=== PATIENT | female | born 1940 | race Caucasian/White ===

== ENCOUNTER 2017-12-09 08:54 | Day surgery (SDC) | payer OTHER | END 2017-12-09 14:15 | disposition home or self-care (01) | LOC: AMB-ENDOS 08:54 → CIR.AMB 12:00 → AMB-ENDOS 14:15 | DX: D12.0 Benign neoplasm of cecum (principal) ==

== ENCOUNTER 2023-05-19 10:45 | Inpatient (IN) | payer OTHER ==
[2023-05-29] MEDS ORDERED: INSULIN REGULAR, HUMAN 1,000 UNIT/10 ML UNITS SUBCUTANEO ONE (11:30)
[2023-05-29] MEDS ORDERED: METRONIDAZOLE/SODIUM CHLORIDE 500 MG/100 ML PIGGYBACK IV ONE ×3 (11:42→18:07)
[2023-05-29] MEDS ORDERED: CEFTRIAXONE SODIUM 2,000 MG VIAL ONE (11:42)
[2023-05-29] MEDS ORDERED: CEFTRIAXONE SODIUM 2,000 MG VIAL IV ONE (11:45)
[2023-05-29] MEDS ORDERED: 0.9 % SODIUM CHLORIDE 1,000 ML IV SCH (16:00)
[2023-05-29] MEDS ORDERED: DEXTROSE 50 % IN WATER 0.5 G/ML DISP.SYRIN IV PRN ×2 (16:00→20:30)
[2023-05-29] MEDS ORDERED: INSULIN LISPRO 1,000 UNIT/10 ML UNITS SUBCUTANEO PRN ×2 (16:00→20:30)
[2023-05-29] MEDS ORDERED: MORPHINE SULFATE 4 MG/ML CARTRIDGE IV PRN (16:00)
[2023-05-29] MEDS ORDERED: OxyCODONE HCL 5 MG TABLET (ROXICODONE) PO PRN (16:00)
[2023-05-29] MEDS ORDERED: ONDANSETRON HCL 2 MG/ML VIAL IV PRN (16:00)
[2023-05-29] MEDS ORDERED: FUROSEMIDE40 MG (16:24)
[2023-05-29] MEDS ORDERED: MONTELUKAST SOD10 MG (16:24)
[2023-05-29] MEDS ORDERED: LATANOPROST2.5 ML (16:24)
[2023-05-29] MEDS ORDERED: METOPROLOL SUCC50 MG (16:24)
[2023-05-29] MEDS ORDERED: DOXAZOSIN MESYLA4 MG (16:24)
[2023-05-29] MEDS ORDERED: SYMBICORT 16010.2 GM (16:24)
[2023-05-29] MEDS ORDERED: CLONAZEPAM1 MG (16:24)
[2023-05-29] MEDS ORDERED: SIMVASTATIN40 MG (16:24)
[2023-05-29] MEDS ORDERED: FAMOTIDINE40 MG (16:24)
[2023-05-29] MEDS ORDERED: DORZOLAMIDE HCL10 ML (16:24)
[2023-05-29] MEDS ORDERED: MAXIMUM D3325 MCG (16:25)
[2023-05-29] MEDS ORDERED: SYNTHROID150 MCG (16:25)
[2023-05-29] MEDS ORDERED: METFORMIN HCL500 M1 (16:25)
[2023-05-29] MEDS ORDERED: HYDRALAZINE HC100 MG (16:25)
[2023-05-29] MEDS ORDERED: XARELTO15 MG (16:25)
[2023-05-29] MEDS ORDERED: VALSARTAN320 MG (16:25)
[2023-05-29] MEDS ORDERED: HYOSCYAMINE SULFATE 0.125 MG TAB.SUBL SL SCH (17:00)
[2023-05-29] MEDS ORDERED: METRONIDAZOLE/SODIUM CHLORIDE 500 MG/100 ML PIGGYBACK IV SCH (17:00)
[2023-05-29] MEDS ORDERED: POLYETHYLENE GLYCOL 3350 17 GM BLIST.PACK PO SCH (17:00)
[2023-05-29] MEDS ORDERED: GABAPENTIN 300 MG CAPSULE PO SCH (17:00)
[2023-05-29 17:18] LABS: HEMATOCRIT 32.7 % (36.0-45.00); HEMOGLOBIN 10.8 g/dL (12.0-15.00); MEAN CELL VOLUME 94.7 fL (80.00-100.00); MEAN CORPUSCULAR HEMOGLOBIN 31.2 pg (27.00-32.0); MEAN CORPUSCULAR HGB CONC 32.9 g/dl (32.0-36.0); PLATELET COUNT 220 K/uL (150-450); RED BLOOD COUNT 3.45 M/uL (4.00-6.00); RED CELL DISTRIBUTION WIDTH 14.3 % (11.5-14.5)
[2023-05-29 17:38] LABS: CALCIUM 8.5 mg/dL (8.5-10.1); CREATININE SERUM 1.2 mg/dL (0.55-1.02); GFR 43.22; MAGNESIUM 1.8 mg/dL (1.8-2.4); PHOSPHOROUS 3.1 mg/dL (2.5-4.9); POTASSIUM 4.25 mEq/L (3.5-5.1)
[2023-05-29] MEDS ORDERED: ACETAMINOPHEN 500 MG GEL..CAP PO SCH (20:00)
[2023-05-29] MEDS ORDERED: LEVALBUTEROL HCL 0.63 MG/3 ML SOLUTION IH SCH (20:24)
[2023-05-29] MEDS ORDERED: hydrALAZINE HCL 20 MG VIAL IV PRN (20:30)
[2023-05-29] MEDS ORDERED: MONTELUKAST SODIUM 10 MG TABLET PO SCH (21:00)
[2023-05-29] MEDS ORDERED: DOXAZOSIN MESYLATE 4 MG TABLET PO SCH (21:00)
[2023-05-29] MEDS ORDERED: hydrALAZINE HCL 50 MG TABLET PO SCH (21:00)
[2023-05-29] MEDS ORDERED: METOPROLOL SUCCINATE 50 MG TAB.SR.24H PO SCH (21:00)
[2023-05-29] MEDS ORDERED: FAMOTIDINE/PF 20 MG/2 ML VIAL IV PUSH SCH (21:00)
[2023-05-29 22:27] LABS: ABG PH 7.368 (7.35-7.45); ABG PO2 188.7 mmHg (80-100); ABG pCO2 36.6 mmHg (35-45); Tco2 21.7 mmol/l
[2023-05-29 22:28] LABS: BASE EXCESS -4.1 mmol/l; BICARBONATE 20.6 mmol/l (23-25); SaO2 99.6 %; allen test SATISFACTORY; o2 32 %; puncture site RADIAL LEFT
[2023-05-30 05:14] LABS: HEMATOCRIT 30.8 % (36.0-45.00); MEAN CELL VOLUME 97.4 fL (80.00-100.00); MEAN CORPUSCULAR HEMOGLOBIN 32.8 pg (27.00-32.0); MEAN CORPUSCULAR HGB CONC 33.7 g/dl (32.0-36.0); PLATELET COUNT 199 K/uL (150-450); RED BLOOD COUNT 3.17 M/uL (4.00-6.00); RED CELL DISTRIBUTION WIDTH 14.5 % (11.5-14.5)
[2023-05-30 05:34] LABS: ALBUMIN 2.8 gm/dL (3.4-5.0); CALCIUM 8.3 mg/dL (8.5-10.1); CREATININE SERUM 1.57 mg/dL (0.55-1.02); GFR 31.7; MAGNESIUM 1.8 mg/dL (1.8-2.4); POTASSIUM 4.51 mEq/L (3.5-5.1)
[2023-05-30 05:52] LABS: HEMOGLOBIN 10.4 g/dL (12.0-15.00)
[2023-05-30] MEDS ORDERED: SYNTHROID 150 MCG PO SCH (06:00)
[2023-05-30] MEDS ORDERED: PATIENTS OWN MEDICATION (MEDICAMENTO EN PISO) PO SCH (09:00)
[2023-05-30] MEDS ORDERED: LACTULOSE 20 G/30 ML BLIST.PACK PO SCH (09:00)
[2023-05-30] MEDS ORDERED: FUROsemide 40 MG TABLET PO SCH (09:00)
[2023-05-30] MEDS ORDERED: SOD FERRIC GLUC COMPLX/SUCROSE 62.5 MG in 0.9 % SODIUM CHLORIDE 50 ML IV SCH (10:29)
[2023-05-30] MEDS ORDERED: Cyanocobalamin/Mecobalamin 1 TAB.SL SL SCH (10:30)
[2023-05-30] MEDS ORDERED: 0.9 % SODIUM CHLORIDE 1,000 ML IV SCH (14:15)
[2023-05-30] MEDS ORDERED: ENOXAPARIN SODIUM 40 MG/0.4 ML SYRINGE SUBCUTANEO SCH (17:00)
[2023-05-30] MEDS ORDERED: SIMVASTATIN 40 MG TABLET PO SCH (17:00)
[2023-05-30] MEDS ORDERED: TAMSULOSIN HCL 0.4 MG CAP PO SCH (21:00)
[2023-05-31] MEDS ORDERED: PATIENTS OWN MEDICATION (MEDICAMENTO EN PISO) PO SCH (06:00)
[2023-05-31] MEDS ORDERED: SOD FERRIC GLUC COMPLX/SUCROSE 62.5 MG/5 ML AMPUL IV ONE (07:21)
[2023-05-31 07:29] LABS: HEMATOCRIT 28.8 % (36.0-45.00); HEMOGLOBIN 9.5 g/dL (12.0-15.00); MEAN CELL VOLUME 96.8 fL (80.00-100.00); MEAN CORPUSCULAR HEMOGLOBIN 32.1 pg (27.00-32.0); MEAN CORPUSCULAR HGB CONC 33.1 g/dl (32.0-36.0); PLATELET COUNT 178 K/uL (150-450); RED BLOOD COUNT 2.97 M/uL (4.00-6.00); RED CELL DISTRIBUTION WIDTH 14.9 % (11.5-14.5)
[2023-05-31 07:51] LABS: ALBUMIN 2.5 gm/dL (3.4-5.0); CALCIUM 7.7 mg/dL (8.5-10.1); CREATININE SERUM 1.45 mg/dL (0.55-1.02); GFR 34.74; MAGNESIUM 1.7 mg/dL (1.8-2.4); PHOSPHOROUS 3.1 mg/dL (2.5-4.9); POTASSIUM 4.77 mEq/L (3.5-5.1)
[2023-05-31] MEDS ORDERED: ENOXAPARIN SODIUM 40 MG/0.4 ML SYRINGE SUBCUTANEO SCH (09:00)
[2023-05-31] MEDS ORDERED: FF) FLECAINIDE ACETATE 50MG TAB PO STA (10:51)
[2023-05-31] MEDS ORDERED: METOPROLOL SUCCINATE 50 MG TAB.SR.24H PO SCH (21:00)
[2023-06-01] MEDS ORDERED: HYOSCYAMINE0.125 M1 SL (12:25)
[2023-06-01] MEDS ORDERED: CELEBREX200MG PO (12:26)
== END 2023-06-01 13:40 | disposition home or self-care (01) | DRG 331 ==
LOC: O/R 05-29 08:02 → SURG 05-29 08:02 → SURH 05-29 10:45 → SURG 05-29 17:02 → SURH 05-30 17:25
PROVIDERS: Internal Medicine Geriatric Medicine; ADMIT Surgery; ATTEND Surgery
PROC: 0DJD0ZZ Inspection of Lower Intestinal Tract, Open Approach (ICD-10-PCS; 2023-05-29)
PROC: 0DTF0ZZ Resection of Right Large Intestine, Open Approach (ICD-10-PCS; principal; 2023-05-29 14:30)
DX: D12.0 Benign neoplasm of cecum (principal); R59.0 Localized enlarged lymph nodes; E11.9 Type 2 diabetes mellitus without complications; G47.30 Sleep apnea, unspecified; E03.9 Hypothyroidism, unspecified; I48.0 Paroxysmal atrial fibrillation; Z53.31 Laparoscopic surgical procedure converted to open procedure